=== PATIENT | male | born 1985 | race Two or more races ===

== ENCOUNTER 2020-08-27 18:18 | Emergency (ER) | payer OTHER ==
[~2020-08-27] VITALS: Ht 172.7 cm; Wt 118.2 kg
[2020-08-27] MEDS ORDERED: OLAN10TA3 PO (18:34)
[2020-08-27] MEDS ORDERED: IBUPROFEN 600 MG TABLET PO ONE (20:00)
[2020-08-27 20:36] VITALS: BP 141/89
== END 2020-08-27 20:46 | disposition home or self-care (01) ==
LOC: EMS 18:22
DX: S93.602A Unspecified sprain of left foot, initial encounter (principal); H93.12 Tinnitus, left ear; V89.2XXA Person injured in unspecified motor-vehicle accident, traffic, initial encounter; Y93.89 Activity, other specified; Y92.488 Other paved roadways as the place of occurrence of the external cause; Y99.8 Other external cause status; I10 Essential (primary) hypertension
CPT/HCPCS: 99283